=== PATIENT | male | born 1975 | race Caucasian/White ===

== ENCOUNTER 2021-01-10 23:31 | Emergency (ER) | payer BC ==
[~2021-01-10] VITALS: Ht 175.3 cm; Wt 72.6 kg
--- NOTE | 2021-01-10 23:37 | NUR ---
DR. GRACIA SPEAKING WITH PT'S MD, DR. VALADEZ
[2021-01-10] MEDS ORDERED: LIDOCAINE 2% JEL UROJET 10 ML MM ONE (23:43)
--- NOTE | 2021-01-10 23:45 | NUR ---
PT BIBSELF C/O OF URINARY RETENTION S/P KIDNEY STONE REMOVAL. PT AAOX4 BREATHING EVENLY AND UNLABORED. PT STATES THAT HE HAD NOT BEEN ABLE TO URINATE SINCE AROUND 1500 TODAY. PT ATTACHED TO MONITOR AND POX. PT SKIN WARM, DRY, AND INTACT. MD AT BEDSIDE FOR EVAL. BLANKET AND CALL LIGHT WITHIN REACH. WILL CONTINUE TO MONITOR.
[2021-01-11] MEDS ORDERED: TAMSULOSIN 0.4 MG CAP.SR.24H PO ONE
[2021-01-11] MEDS ORDERED: GENTAMICIN 80 MG/2 ML VIAL IM ONE
[2021-01-11] MEDS ORDERED: TAMSULOSIN 0.4 MG CAP.SR.24H ONE (00:01)
[2021-01-11] MEDS ORDERED: GENTAMICIN 80 MG/2 ML VIAL ONE (00:01)
--- NOTE | 2021-01-11 00:04 | NUR ---
INSERTED IN N OUT CATH AND 800ML OF TEA COLORED URINE WAS OBTAINED.
--- NOTE | 2021-01-11 00:05 | NUR ---
URINE SENT TO LAB
[2021-01-11] MEDS ORDERED: LIDOCAINE 2% JEL UROJET 10 ML MM ONE (00:30)
[2021-01-11 00:42] LABS: BILIRUBIN,URINE MODERATE (NEGATIVE); COLOR,URINE RED (YELLOW); LEUKOCYTE ESTERASE ,URINE SMALL (NEGATIVE); NITRITE, URINE POSITIVE (NEGATIVE); PROTEIN,URINE >=300 mg/dl (NEGATIVE); UGLUCOSE 100 MG/DL mg/dL (NEGATIVE)
[2021-01-11 00:49] LABS: BACTERIA,URINE Few /HPF (None Seen); RBC,URINE TOO NUMEROUS TO COUN /HPF (0-2); SQUAMOUS EPITHELIAL CELL,UR Few /HPF (None Seen)
--- NOTE | 2021-01-11 00:55 | NUR ---
Patient discharged to home in stable condition. Written and verbal after care instructions given. Patient verbalizes understanding of instruction. Pt ambulatory with a steady gait
[2021-01-11 01:00] VITALS: BP 150/88
== END 2021-01-11 00:55 | disposition home or self-care (01) ==
LOC: ER 23:34
DX: R33.9 Retention of urine, unspecified (principal); Z98.890 Other specified postprocedural states; Z87.442 Personal history of urinary calculi
CPT/HCPCS: 81001; 96372; 99283; J1580; J3490; 87086-TC